=== PATIENT | male | born 1995 | race Caucasian/White ===

== ENCOUNTER 2019-12-08 15:32 | Emergency (ER) | payer OTHER, SELFPAY ==
--- NOTE | ~2019-12-08 | XR_ITS ---
EXAMINATION: XR chest 2V EXAM DATE: 12/08/2019 16:08 INDICATION: Chest pressure, rapid heart rate, tachycardia. TECHNIQUE: Frontal and lateral projections of the chest obtained and reviewed. There is no prior shravan dy for comparison. FINDINGS: Moderate hyperinflation. The lungs are clear. There are no pleural effusions. The cardiom ediastinal silhouette is within normal limits. There is no pneumothorax suspected. The bones and so ft tissues are unremarkable. IMPRESSION: Hyperinflation. Clear lungs. Reviewed, dictated and finalized at location A.
[2019-12-08 15:38] VITALS: BP 154/108; PULSE 140; RESP 17; TEMP 36.9; O2SAT 100
--- NOTE | 2019-12-08 15:43 | ECG_ITS ---
Measurements Intervals [place] Rate: 140 P: 75 WV: 152 QRS: 7 QRSD: 96 T: 79 QT: 257 QTc: 393 Interpretive Statements SINUS TACHYCARDIA PEAKED T WAVE- CONSIDER HYPERKALEMIA OR ISCHEMIA BORDERLINE ST-T WAVE ABNORMALITY- HIGH LATERAL LEADS BASELINE ARTIFACT- I, AV, V5-V6 ABNORMAL ECG Electronically Signed On 12-08-2019 16:08:20 CDT by Ever Stubbs D.O.
[2019-12-08 15:56] LABS: Basophils Percent Auto 0.2 % (0.2-1.2); Eosinophils Percent Auto 0.1 % (0-4.4); Hematocrit 43.9 % (42.0-52.0); Hemoglobin 15.2 g/dL (14.0-18.0); Immature Granulocyte Absolute 0.03 K/mm3 (0.00-0.031); Immature Granulocyte Percent A 0.3 % (0-0.5); Lymphocytes Absolute Auto 1.33 K/mm3 (0.9-3.2); Lymphocytes Percent Auto 13.7 % (18.3-44.2); Mean Corpuscular HGB Conc 34.6 g/dl (32-36); Mean Corpuscular Hemoglobin 30.9 pg (26-34); Mean Corpuscular Volume 89.2 fl (80-100); Mean Platelet Volume 10.1 fl (7.4-10.4); Monocytes Absolute Auto 0.7 K/mm3 (0.1-0.6); Monocytes Percent Auto 7.2 % (2.6-8.5); Neutrophils Absolute Auto 7.6 K/mm3 (1.3-6.7); Neutrophils Percent Auto 78.5 % (45.5-73.1); Platelet Count Result 305 k/mm3 (150-375); Red Blood Count 4.92 M/mm3 (4.6-6.20); Red Cell Distribution Width 11.6 % (11.5-14.5); White Blood Count 9.7 K/mm3 (4.5-10.0)
--- NOTE | 2019-12-08 15:58 | ED.ARRPALP ---
HPI - Arrhythmia/Palpitations General Chief Complaint: Arrhythmia/Palpitations Stated Complaint: RAPID HEART BEAT Time Seen by Provider: 12/08/19 15:46 History of Present Illness HPI narrative: Patient presents with an hour and a half of fast heart rate. He usually gets it for only about 20 minutes. He has been getting it more often in the last couple days. He works in the [employer] section of [employer]. He says he only thing on his mind is the recent COVID pandemic. He has no thyroid history, has not had any alcohol in months, and has not used marijuana or hallucinogens in years. His only surgery is circumcision. He has not been sick in the last week or 2. His hands are frequently cold. MD complaint: rapid heart beat Onset (ago): hour(s) Duration: constant Severity: moderate Context: occurred during rest Arrhythmia history: other (None) Associated symptoms: denies other symptoms Treatments prior to arrival: other (Slow breathing) Related Data Allergies Allergy/AdvReac Type Severity Reaction Status Date / Time No Known Allergies Allergy Verified 12/08/19 15:42 Review of Systems Review of Systems: Narrative: CONSTITUTIONAL: Denies fever, chills, or sweats. EYES: Denies visual changes, redness, or discharge. ENT: Denies rhinorrhea, congestion, sore throat, or otalgia. CARDIOVASCULAR: Denies chest pain, or edema. RESPIRATORY: Denies cough or dyspnea. GASTROINTESTINAL: Denies abdominal pain, nausea, vomiting, or diarrhea. GENITOURINARY: Denies dysuria or hematuria. SKIN: Denies rash or itching. MUSCULOSKELETAL: Denies back pain, joint pain, or myalgia. NEUROLOGIC: Denies headache, numbness, or weakness. PSYCHIATRIC: Denies anxiety or depression. PMFSH Surgical History Surgical History (Updated 12/08/19 @ 16:01 by Nicole Ruelas MD) History of circumcision Social History Social History (Updated 12/08/19 @ 16:01 by Nicole Ruelas MD) Smoking status: Never smoker Alcohol intake: former Substance use: former Exam Narrative: Exam Narrative: GENERAL: Well-appearing, well-nourished, and in no acute distress. HEAD: Normocephalic, atraumatic. EYES: PERRLA and EOMI. ENT: Nares clear, no rhinorrhea or epistaxis. Mucous membranes moist. NECK: Supple. No thyroid enlargement or nodules. CHEST: Clear to auscultation. No respiratory distress. HEART: Tachy, No murmur heard. Normal peripheral pulses. ABDOMEN: Soft, nontender, nondistended, normal active bowel sounds. EXTREMITIES: Normal range of motion. No edema. Cool purplish hands. SKIN: Warm, dry, no rash. NEURO: No focal deficits. Alert and oriented x3. PSYCH: Normal mood and affect. Course Reevaluation(s) Reevaluation #1: Heart rate down to 110 on the monitor. Patient is provided urine. First liter bag is almost in. [id number] with the patient, he is doing fine. Date: 12/08/19 Time: 16:48 Reevaluation #2: Final reevaluation with the patient [id number] at 1713. He is feeling better. Told him all of his labs and tests were normal. I will prescribe some Xanax, for any episodes that may occur in the future. He is to follow-up with his PCP. Date: 12/08/19 Time: 17:14 Vital Signs Vital signs: Vital Signs Temperature 98.4 F 12/08/19 15:38 Pulse Rate 140 H 12/08/19 15:38 Respiratory Rate 17 12/08/19 15:38 Blood Pressure 154/108 H 12/08/19 15:38 Pulse Oximetry 100 12/08/19 15:38 Temperature 98.4 F 12/08/19 15:38 Pulse Rate 108 H 12/08/19 16:33 Respiratory Rate 12 12/08/19 16:33 Blood Pressure 130/72 12/08/19 16:33 Pulse Oximetry 100 12/08/19 16:33 MDM - Arrhythmia/Palpitations Differential Diagnosis Differential diagnosis: Likely palpitations, anxiety and sinus tachycardia Medical Records Attestation: I reviewed the patient's medical records. Lab Data Attestation: I reviewed the patient's lab results. Result diagrams: 12/08/19 15:48 12/08/19 15:48 Labs: Lab Results 12/08/19
[2019-12-08 16:07] LABS: INR 1.1; Prothrombin Time 13.5 Seconds (11.1-14.7)
[2019-12-08 16:08] LABS: Ethanol < 10 mg/dL (<10)
[2019-12-08 16:08] LABS: Partial Thromboplastin Time 31.9 SECONDS (22.3-36.8)
[2019-12-08 16:09] LABS: Blood Urea Nitrogen 11 mg/dL (9-20); Calcium 9.6 mg/dL (8.4-10.2); Carbon Dioxide 28 mmol/L (22-30); Chloride 104 mmol/L (98-107); Estimated CRCL calculation 119 ml/min; Estimated Glomerular Filt Rate > 60; Glucose 143 mg/dL (75-110); Potassium 3.5 mmol/L (3.4-5.0); Sodium 141 mmol/L (137-145)
[2019-12-08] MEDS: SODIUM CHLORIDE 0.9% IV 1,000 ML 999 ML IV CONT (16:15)
[2019-12-08 16:20] LABS: Troponin I < 0.012 ng/mL (0.000-0.034)
[2019-12-08 16:33] VITALS: BP 130/72; PULSE 108; RESP 12; O2SAT 100
[2019-12-08 17:06] LABS: Amphetamine Screen Urine Negative (Negative); Barbiturate Screen Urine Negative (Negative); Benzodiazepines Screen Urine Negative (Negative); Cannabinoid Screen Urine Negative (Negative); Cocaine Screen Urine Negative (Negative); Methadone Screen Urine Negative (Negative); Opiate Screen Urine Negative (Negative); Phencyclidine Screen Urine Negative (Negative)
[2019-12-08 17:36] VITALS: BP 136/67; PULSE 96; RESP 18; O2SAT 98
== END 2019-12-08 17:38 | disposition home or self-care (01) ==
PROVIDERS: Emergency Provider Emergency Medicine
DX: R00.0 Tachycardia, unspecified (principal)
CPT/HCPCS: 36415; 71046; 80048; 80307; 84443; 84484; 85025; 85610; 85730; 93005; 96360; 99284; J7030

== ENCOUNTER 2022-04-17 04:51 | Emergency (ER) | payer BC, SELFPAY ==
[2022-04-17] VITALS (11 sets, daily range): BP systolic 140–174; BP diastolic 90–106; PULSE 101–152; RESP 12–20; TEMP 36.7; O2SAT 100
--- NOTE | ~2022-04-17 | CT_ITS ---
EXAMINATION: CTA chest PE protocol DATE: 04/17/2022 06:07 INDICATION: Left chest pain. TECHNIQUE: Computed tomography angiography (CTA) of the chest was performed with 100 mL Omnipaque-350 intravenous contrast timed to evaluate the pulmonary arteries. Coronal maximum intensity projection 3D-reconstructions were created by the technologist. Automated exposure control and iterative reconst ruction technique were employed. The dose-length product was 315.91 mGy-cm. COMPARISON: None. FINDINGS: There is no pneumonia or pleural effusion. The heart size is normal. No pericardial effusio n. There is no pulmonary embolus. The bones are unremarkable. IMPRESSION: 1. No pulmonary embolus. Reviewed, dictated and finalized at location A. IMPRESSION: 1. No pulmonary embolus.
--- NOTE | ~2022-04-17 | XR_ITS ---
EXAMINATION: XR chest 2V DATE: 04/17/2022 05:17 INDICATION: Left chest pain. TECHNIQUE: Frontal and lateral views of the chest were obtained. COMPARISON: Chest 2 views 12/08/2019, chest CT 04/17/2022 FINDINGS: The chest demonstrates clear lungs without pneumonia, pleural effusion, or pneumothorax. Th e heart size is normal. IMPRESSION: 1. No acute cardiopulmonary disease. Reviewed, dictated and finalized at location A.
--- NOTE | 2022-04-17 04:55 | ECG_ITS ---
Measurements Intervals [place] Rate: 146 P: 71 [place]: 146 QRS: 30 QRSD: 91 T: 80 QT: 269 QTc: 420 Interpretive Statements SINUS TACHYCARDIA ABNORMAL ECG COMPARED TO ECG 12/08/2019 15:42:18 PEAKED T WAVES HAVE RESOLVED Electronically Signed On 04-17-2022 10:07:46 CDT by Ever Stubbs D.O.
--- NOTE | 2022-04-17 05:08 | ECG_ITS ---
Measurements Intervals [place] Rate: 117 P: 74 [place]: 174 QRS: 25 QRSD: 93 T: 75 QT: 289 QTc: 404 Interpretive Statements SINUS TACHYCARDIA ABNORMAL RHYTHM ECG COMPARED TO ECG 04/17/2022 05:02:49 PEAKED T WAVES HAVE RESOLVED Electronically Signed On 04-17-2022 10:09:06 CDT by Ever Stubbs D.O.
--- NOTE | 2022-04-17 05:09 | PC.NURSE ---
VORB repeat EKG when patient returns from xray.
[2022-04-17 05:24] LABS: Basophils Absolute Auto 0.1 K/mm3 (0.0-0.1); Basophils Percent Auto 0.7 % (0.2-1.2); Eosinophils Absolute Auto 0.1 K/mm3 (0-0.3); Hematocrit 43.6 % (42.0-52.0); Hemoglobin 15.4 g/dL (14.0-18.0); Immature Granulocyte Absolute 0.01 K/mm3 (0.00-0.031); Immature Granulocyte Percent A 0.1 % (0-0.5); Lymphocytes Absolute Auto 2.26 K/mm3 (0.9-3.2); Lymphocytes Percent Auto 31.4 % (18.3-44.2); Mean Corpuscular HGB Conc 35.3 g/dl (32-36); Mean Corpuscular Hemoglobin 31.1 pg (26-34); Mean Corpuscular Volume 88.1 fl (80-100); Mean Platelet Volume 9.7 fl (7.4-10.4); Monocytes Absolute Auto 0.8 K/mm3 (0.1-0.6); Monocytes Percent Auto 11.5 % (2.6-8.5); Neutrophils Percent Auto 55.3 % (45.5-73.1); Platelet Count Result 349 k/mm3 (150-375); Red Blood Count 4.95 M/mm3 (4.6-6.20); Red Cell Distribution Width 11.8 % (11.5-14.5); White Blood Count 7.2 K/mm3 (4.5-10.0)
[2022-04-17] MEDS: SODIUM CHLORIDE 0.9% IV 1,000 ML 999 ML IV CONT (05:28)
[2022-04-17] MEDS: ASPIRIN 81 MG CHEWABLE TABLET 324 MG PO (05:28)
[2022-04-17 05:36] LABS: Prothrombin Time 13.2 Seconds (11.1-14.7)
[2022-04-17 05:37] LABS: Partial Thromboplastin Time 32.5 SECONDS (22.3-36.8)
[2022-04-17 05:41] LABS: Alanine Aminotransferase 22 U/L (6-50); Albumin Level 5.2 g/dL (3.5-5.1); Alkaline Phosphatase 56 U/L (38-126); Anion Gap 18 mmol/L (8-16); Aspartate Amino Transferase 23 U/L (17-59); Bilirubin,Total 2.2 mg/dL (0.2-1.3); Blood Urea Nitrogen 12 mg/dL (9-20); Calcium 9.6 mg/dL (8.4-10.2); Carbon Dioxide 20 mmol/L (22-30); Chloride 101 mmol/L (98-107); Estimated CRCL calculation 111 ml/min; Estimated Glomerular Filt Rate > 60; Glucose 177 mg/dL (65-110); Lipase 124 U/L (23-300); Potassium 3.2 mmol/L (3.4-5.0); Sodium 139 mmol/L (137-145)
[2022-04-17 05:52] LABS: NT Pro B Type Natriuretic Pept 47 pg/mL (5-100); Troponin I < 0.012 ng/mL (0.000-0.034)
--- NOTE | 2022-04-17 06:19 | ED.GENADULT ---
HPI - General Adult General Chief complaint: Chest Pain <Riaz Galloway MD - Last Filed: 04/17/22 06:25> Stated complaint: chest pain <Riaz Galloway MD - Last Filed: 04/17/22 06:25> Time Seen by Provider: 04/17/22 05:17 <Riaz Galloway MD - Last Filed: 04/17/22 06:25> History of Present Illness HPI narrative: Patient a 26-year-old gentleman who presents the emergency department with chief complaint of chest pain. Patient reports that he had COVID a few weeks ago and reports that he started having a uncomfortable feeling in his chest today patient states her also was a sharp component to it and reports that he got very anxious very short of breath patient reports no prior history of thromboembolic event reports that he occasionally uses marijuana and used a dose of kratom recently. The patient states that he has no prior history of cocaine or methamphetamine abuse the patient states that initially whenever he showed up he was extremely anxious but that subsequently has improved but since he is arrived in the emergency department. <Riaz Galloway MD - Last Filed: 04/17/22 06:25> Related Data Home medications: Home Medications Medication Instructions Recorded Confirmed No Home Medications 04/17/22 04/17/22 <Riaz Galloway MD - Last Filed: 04/17/22 06:25> Allergies/adverse reactions: Allergies Allergy/AdvReac Type Severity Reaction Status Date / Time No Known Allergies Allergy Verified 04/17/22 05:05 <Riaz Galloway MD - Last Filed: 04/17/22 06:25> Review of Systems Review of Systems: A 10 system review of systems was completed on the patient and is negative except for what is stated in the HPI. Nursing and ancillary documentation was reviewed. <Riaz Galloway MD - Last Filed: 04/17/22 06:25> PMFSH Past Medical History Medical History: Medical History (Updated 04/17/22 @ 09:07 by Meg Grove MD) Anxiety <Riaz Galloway MD - Last Filed: 04/17/22 06:25> Surgical History Surgical History: Surgical History History of circumcision <Riaz Galloway MD - Last Filed: 04/17/22 06:25> Family History Family History: Family History Father Diabetes mellitus Mother Hypertension <Riaz Galloway MD - Last Filed: 04/17/22 06:25> Social History Social History: Social History Smoking status: Never smoker Second hand tobacco smoke exposure: No Alcohol intake: former Substance use: former Substance use type: does not use Gender identity (if verbalized by the patient): Male <Riaz Galloway MD - Last Filed: 04/17/22 06:25> Exam Narrative: GENERAL: Well-appearing, well-nourished, and in no acute distress. HEAD: Normocephalic, atraumatic. EYES: PERRLA and EOMI. ENT: Nares clear, no rhinorrhea or epistaxis. Mucous membranes moist. NECK: Supple. CHEST: Clear to auscultation. No respiratory distress. HEART: Regular rate and rhythm. No murmur heard. Normal peripheral pulses. ABDOMEN: Soft, nontender, nondistended, normal active bowel sounds. EXTREMITIES: Normal range of motion. No edema. SKIN: Warm, dry, no rash. NEURO: No focal deficits. Alert and oriented x3. PSYCH: Normal mood and affect. <Riaz Galloway MD - Last Filed: 04/17/22 06:25> Course Course Emergency Course: EKG is sinus tachycardia with a rate of [address] elevation or ST depression. Repeat EKG showed a sinus tachycardia with a rate of [address] elevation or ST depression. Given the patient's recent COVID and having chest pain shortness of breath and tachycardia concern for thromboembolic event was entertained. A CTA of the chest was ordered and is currently pending as of this time <Miles
[2022-04-17 08:37] LABS: Troponin I < 0.012 ng/mL (0.000-0.034)
[2022-04-17] MEDS: POTASSIUM CHLORIDE 20 MEQ TABLET 40 MEQ PO (09:14)
== END 2022-04-17 09:21 | disposition home or self-care (01) ==
PROVIDERS: Emergency Provider Emergency Medicine; PCP Family Medicine
DX: R07.89 Other chest pain (principal); R06.02 Shortness of breath; R00.0 Tachycardia, unspecified; E87.6 Hypokalemia; Z86.16 Personal history of COVID-19
CPT/HCPCS: 36415; 71046; 71275; 80053; 83690; 83880; 84484; 85025; 85610; 85730; 93005; 96360; 99284; A9270; J7030; Q9967

== ENCOUNTER 2022-05-28 10:15 | Outpatient (CLI) | payer BC, SELFPAY ==
[2022-05-28 19:41] LABS: Basophils Percent Auto 0.3 % (0.2-1.2); Eosinophils Percent Auto 0.2 % (0-4.4); Hematocrit 45.5 % (42.0-52.0); Hemoglobin 15.6 g/dL (14.0-18.0); Immature Granulocyte Absolute 0.03 K/mm3 (0.00-0.031); Immature Granulocyte Percent A 0.2 % (0-0.5); Lymphocytes Absolute Auto 1.39 K/mm3 (0.9-3.2); Lymphocytes Percent Auto 10.8 % (18.3-44.2); Mean Corpuscular HGB Conc 34.3 g/dl (32-36); Mean Corpuscular Volume 90.5 fl (80-100); Mean Platelet Volume 10.1 fl (7.4-10.4); Monocytes Absolute Auto 0.8 K/mm3 (0.1-0.6); Monocytes Percent Auto 6.4 % (2.6-8.5); Neutrophils Absolute Auto 10.6 K/mm3 (1.3-6.7); Neutrophils Percent Auto 82.1 % (45.5-73.1); Platelet Count Result 340 k/mm3 (150-375); Red Blood Count 5.03 M/mm3 (4.6-6.20); Red Cell Distribution Width 11.9 % (11.5-14.5); White Blood Count 12.9 K/mm3 (4.5-10.0)
[2022-05-28 19:48] LABS: Alanine Aminotransferase 23 U/L (6-50); Albumin Level 5.1 g/dL (3.5-5.1); Alkaline Phosphatase 78 U/L (38-126); Anion Gap 15 mmol/L (8-16); Aspartate Amino Transferase 28 U/L (17-59); Bilirubin,Total 1.7 mg/dL (0.2-1.3); Blood Urea Nitrogen 15 mg/dL (9-20); Calcium 9.5 mg/dL (8.4-10.2); Carbon Dioxide 20 mmol/L (22-30); Chloride 103 mmol/L (98-107); Cholesterol 153 mg/dL (0-200); Estimated Glomerular Filt Rate > 60; Glucose 98 mg/dL (65-110); HDL Direct 67 mg/dL; Potassium 3.8 mmol/L (3.4-5.0); Sodium 138 mmol/L (137-145); Triglycerides 144 mg/dL (<150)
[2022-05-28 19:59] LABS: LDL Cholesterol Direct 50 mg/dL
[2022-05-28 20:02] LABS: Vitamin D 25 Hydroxy 17.6 ng/mL
[2022-05-28 20:15] LABS: Thyroid Stimulating Hormone Reflex 0.668 uIU/mL (0.465-4.68)
== END 2022-05-28 10:16 | disposition home or self-care (01) ==
LOC: ANHGOSHLAB 10:17
PROVIDERS: PCP Family Medicine; Visit Provider Family Medicine
DX: Z00.00 Encounter for general adult medical examination without abnormal findings (principal); E55.9 Vitamin D deficiency, unspecified; I73.00 Raynaud's syndrome without gangrene; R00.2 Palpitations; Z13.220 Encounter for screening for lipoid disorders; F41.9 Anxiety disorder, unspecified; I10 Essential (primary) hypertension
CPT/HCPCS: 36415; 80053; 80061; 82306; 84443; 85025